=== PATIENT | male | born 1950 | race American Indian/Alaskan Native ===

== ENCOUNTER 2017-01-24 10:05 | Emergency (ER) | payer MEDICARE ==
[2017-01-24 10:06] VITALS: PULSE 78
[2017-01-24 10:24] VITALS: TEMP 98.7; O2SAT 98; BMI 30.3
--- NOTE | 2017-01-24 10:32 | ED PDOC ---
Arrival/HPI - General Time Seen by Provider: 01/24/17 10:16 Historian: Patient - History of Present Illness Narrative History of Present Illness (Text): 01/24/17 10:26 A 67 year old male, whose past medical history includes hypertension, hyperlipidemia, and diabetes, presents to the emergency department with 4 day duration left hip/ left back pain. The patient states that he has experienced this pain before. He notes that the pain is relieved when he walks. The patient denies fevers, chills, headache, dizziness, chest pain, shortness of breath, dyspnea on exertion, cough, abdominal pain, nausea, vomiting, diarrhea, neck pain, urinary/bowel changes, or any other complaint. PMD: Dr. Hathaway Time/Duration: Other (4 Days) Symptom Onset: Sudden Symptom Course: Unchanged Activities at Onset: Rest Context: Home Past Medical History - Provider Review Nursing Documentation Reviewed: Yes - Cardiac Hx Hypertension: Yes - Neurological Hx Paralysis: No - Endocrine/Metabolic Hx Diabetes Mellitus Type 2: Yes - Hematological/Oncological Hx Blood Transfusions: No Hx Blood Transfusion Reaction: No - Musculoskeletal/Rheumatological Hx Musculoskeletal Disorders: No - Psychiatric Hx Emotional Abuse: No Hx Physical Abuse: No Hx Substance Use: No - Surgical History Hx Cardiac Catheterization: Yes Hx Coronary Stent: Yes - Anesthesia Hx Anesthesia Reactions: No Hx Malignant Hyperthermia: No - Suicidal Assessment Feels Threatened In Home Enviroment: No Family/Social History - Physician Review Nursing Documentation Reviewed: Yes Family/Social History: No Known Family HX Smoking Status: Never Smoked Hx Alcohol Use: No Hx Substance Use: No Allergies/Home Meds Allergies/Adverse Reactions: Allergies No Known Allergies Allergy (Verified 01/24/17 10:31) Home Medications: Home Meds Medication Instructions Recorded Confirmed Carvedilol 6.25 mg PO BID 11/13/12 01/24/17 Digoxin 0.25 mg PO DAILY 11/13/12 01/24/17 Enalapril Maleate [Enalapril] 10 mg PO BID 11/13/12 01/24/17 Fenofibrate 54 mg PO DAILY 11/13/12 01/24/17 Furosemide 40 mg PO DAILY 11/13/12 01/24/17 Rosuvastatin Calcium [Crestor] 40 mg PO DAILY 11/13/12 01/24/17 Fish Oil [Charlotte 3] 1,000 mg PO DAILY 11/25/12 01/24/17 Aspirin [Aspir 81] 81 mg PO DAILY 11/30/12 01/24/17 Clopidogrel Hydrogen Sulfate 75 mg PO DAILY 11/30/12 01/24/17 [Plavix] Review of Systems - Physician Review All systems were reviewed & negative as marked: Yes - Review of Systems Constitutional: absent: Fevers, Night Sweats Respiratory: absent: SOB Cardiovascular: absent: Chest Pain, LACKEY Gastrointestinal: absent: Abdominal Pain, Diarrhea, Nausea, Vomiting Musculoskeletal: Back Pain (Left lower back pain), Other (Left hip pain) Neurological: absent: Headache, Dizziness Physical Exam Vital Signs Reviewed: Yes Vital Signs Temp Pulse Resp BP Pulse Ox 01/24/17 12:42 64 19 129/83 98 01/24/17 11:31 67 18 165/94 H 98 01/24/17 10:23 98.7 F 68 18 167/100 H 98 Temperature: Afebrile Blood Pressure: Hypertensive Pulse: Regular Respiratory Rate: Normal Appearance: Positive for: Well-Appearing, Non-Toxic, Comfortable Pain Distress: None Mental Status: Positive for: Alert and Oriented X 3 - Systems Exam Head: Present: Atraumatic, Normocephalic Pupils: Present: PERRL Extroacular Muscles: Present: EOMI Conjunctiva: Present: Normal Mouth: Present: Moist Mucous Membranes Neck: Present: Normal Range of Motion Respiratory/Chest: Present: Clear to Auscultation, Good Air Exchange. No: Respiratory Distress, Accessory Muscle Use Cardiovascular: Present: Regular Rate and Rhythm, Normal S1, S2. No: Murmurs Abdomen: Present: Normal Bowel Sounds. No: Tenderness, Distention, Peritoneal Signs Back: Present: Normal Inspection, Other (Left paralumbar spinal tenderness.) Upper Extremity: Present: Normal Inspection. No: Cyanosis, Edema Lower Extremity: Present: Normal Inspection. No: Edema Neurological: Present: GCS=15, CN II-XII Intact, Speech Normal Skin: Present: Warm, Dry, Normal Color. No: Rashes Psychiatric: Present: Alert, Oriented x 3, Normal Insight, Normal Concentration Medical Decision Making ED Course and Treatment: 01/24/17 10:34 Impression: A 67 year old male presents to the emergency department with 4 day duration left lower back/ left hip pain. Plan: -- Left Hip/ LS Spine X-Ray -- Flexeril and Toradol -- Urinalysis -- Reassess and disposition Progress Notes: 01/24/17 12:46: Updated patient on the results of his hip X- Ray reading. The patient was advised to get an outpatient study and to see the specialist. Radiographs of the Lumbar Spine. Dictator : Ana Gao MD Report Date : 01/24/2017 13:05:21 IMPRESSION: No acute fracture, spondylolysis or spondylolisthesis. Multilevel degenerative disc disease, worse at L5-S1. Left Hip X-ray Radiographs. Dictator : Ana Gao MD Report Date : 01/24/2017 13:02:20 IMPRESSION: Sclerotic lesion in the left iliac wing is nonspecific and could represent a bone island however sclerotic metastasis cannot be excluded. Correlation with known or suspected history of cancer and radionuclide bone scan may be performed if clinically warranted. 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 01/24/17 14:39 pain improved. notified of incidental findings, advsieoutpt f/u - Lab Interpretations Lab Results: Lab Results 01/24/17 11:00: Urine Color Yellow, Urine Appearance Clear, Urine pH 7.5, Ur Specific Donaldson 1.020, Urine Protein Negative, Urine Glucose (UA) Negative, Urine Ketones Negative, Urine Blood Negative, Urine Nitrate Negative, Urine Bilirubin Negative, Urine Urobilinogen 1.0 H, Ur Leukocyte Esterase Negative 01/24/17 10:21: POC Glucose (mg/dL) 96 - RAD Interpretation Radiology Orders: 01/24/17 10:25 HIP MIN 2V W/ PELVIS LT [RAD] Stat LS SPINE AP/LAT [RAD] Stat - Medication Orders Current Medication Orders: Discontinued Medications Cyclobenzaprine HCl (Flexeril) 10 mg PO STAT STA Stop: 01/24/17 10:26 Last Admin: 01/24/17 11:07 Dose: 10 mg Ketorolac Tromethamine (Toradol) 30 mg IM STAT STA Stop: 01/24/17 10:26 Last Admin: 01/24/17 11:07 Dose: 30 mg MAR Pain Assessment Document 01/24/17 11:07 OCS (Rec: 01/24/17 11:08 OCS [facility] [place]-[id number]) Pain Reassessment Is this a pain reassessment? Yes Sleep Is patient sleeping during reassessment? No Presence of Pain Presence of Pain Yes Pain Scale Used Pain Scale Used Numeric Location Left, Right or Bilateral Right Pain Location Body Site Hip Description Description Constant Intensity of Pain at present 8 Aggravating Factors ADL's Alleviating Factors/Management Medication Techniques IM Administration Charges Document 01/24/17 11:07 OCS (Rec: 01/24/17 11:08 OCS [facility] [place]-[id number]) Injection Site MAR Injection Site Left Deltoid Charges for Administration # of IM Administrations 1 - Scribe Statement The provider has reviewed the documentation as recorded by the Scribe Rosibel Pineda Provider Scribe Attestation: All medical record entries made by the Scribe were at my direction and personally dictated by me. I have reviewed the chart and agree that the record accurately reflects my personal performance of the history, physical exam, medical decision making, and the department course for this patient. I have also personally directed, reviewed, and agree with the discharge instructions and disposition. Disposition/Present on Arrival - Present on Arrival Any Indicators Present on Arrival: No - Disposition Have Diagnosis and Disposition been Completed?: Yes Diagnosis: Hip pain, Back pain Disposition: HOME/ ROUTINE Disposition Time: 02:40 Condition: STABLE Discharge Instructions (ExitCare): Acute Low Back Pain (ED), Hip Pain (ED) Additional Instructions: pelase follow up with your doctor. return to er with worsening symptoms or concerns. Prescriptions: Cyclobenzaprine [Cyclobenzaprine HCl] 10 mg PO DAILY #10 tab Naproxen 500 mg PO BID PRN #14 tab PRN Reason: Pain, Mild (1-3) Referrals: [facility] [Outside] - Follow up with primary [facility] [place] [Outside] - Follow up with primary Mitch Rocha DO [Staff Provider] - Follow up with primary Doe Marsh MD [Staff Provider] - Follow up with primary Forms: [employer] (Turkmen)
[2017-01-24 11:25] LABS: PH,URINE 7.5 (4.7-8.0); URINE BILIRUBIN NEGATIVE (NEGATIVE); URINE BLOOD NEGATIVE (NEGATIVE); URINE GLUCOSE (UA) NEGATIVE (NEGATIVE); URINE KETONE NEGATIVE (NEGATIVE); URINE LEUKOCYTE ESTERASE NEGATIVE Leu/uL (NEGATIVE); URINE PROTEIN NEGATIVE mg/dL (<30 mg/dL)
[2017-01-24 11:32] LABS: URINE APPEARANCE CLEAR (CLEAR); URINE COLOR YELLOW (YELLOW)
[2017-01-24 12:42] VITALS: BP 129/83; PULSE 64; RESP 19
--- NOTE | 2017-01-24 13:03 | RAD ---
PROCEDURE: Left Hip X-ray Radiographs. HISTORY: left hip pain COMPARISON: None. FINDINGS: BONES: The pelvic ring is intact. Bone mineralization is normal. There is a round sclerotic lesion in the left iliac wing adjacent to the sacroiliac joint. JOINTS: There is mild degenerative osteoarthrosis in the hip joints, worse on the left. SOFT TISSUES: Normal. OTHER FINDINGS: None. IMPRESSION: Sclerotic lesion in the left iliac wing is nonspecific and could represent a bone island however sclerotic metastasis cannot be excluded. Correlation with known or suspected history of cancer and radionuclide bone scan may be performed if clinically warranted. 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
--- NOTE | 2017-01-24 13:07 | RAD ---
PROCEDURE: Radiographs of the Lumbar Spine. HISTORY: back pain COMPARISON: No prior. FINDINGS: BONES: There is straightening of the lumbar spine with loss of normal lumbar lordosis. Vertebral alignment is normal. Vertebral height is maintained. There is no acute fracture, spondylolysis or spondylolisthesis. DISC SPACES: There is mild multilevel degenerative disc disease with anterior osteophytes, reduced disc heights and multilevel facet arthropathy, worse at L5-S1. OTHER FINDINGS: None. IMPRESSION: No acute fracture, spondylolysis or spondylolisthesis. Multilevel degenerative disc disease, worse at L5-S1.
== END 2017-01-24 13:00 | disposition home or self-care (01) ==
LOC: ED 10:05
DX: M54.5 Low back pain (principal); M25.552 Pain in left hip; I10 Essential (primary) hypertension; E11.9 Type 2 diabetes mellitus without complications; E78.5 Hyperlipidemia, unspecified; Z95.5 Presence of coronary angioplasty implant and graft
CPT/HCPCS: 72100; 73502; 81003; 82948; 96372; 99283; J1885

== ENCOUNTER 2018-04-03 12:17 | Outpatient (CLI) | payer MEDICARE | END 2018-04-03 12:18 | disposition home or self-care (01) | LOC: LAB 12:17 ==